=== PATIENT | female | born 1990 | race Caucasian/White ===

== ENCOUNTER 2022-11-19 07:21 | Emergency (ER) | payer SELFPAY ==
[~2022-11-19] VITALS: Ht 160 cm; Wt 107.5 kg
[2022-11-19 07:24] VITALS: BP 123/76
--- NOTE | 2022-11-19 07:30 | NUR ---
PT AMB TO BED 2.
[2022-11-19] MEDS ORDERED: MORPHINE SULFATE 10 MG/ML VIAL IVP ONE (07:50)
[2022-11-19] MEDS ORDERED: NACL 0.9% 1,000 ML IV ONE ×2 (07:50→08:50)
--- NOTE | 2022-11-19 09:10 | NUR ---
PT WAS HARD STICK, UNABLE TO START IV SL. US MACHINE AND PUT ON BEDSIDE, ENRIQUETA RN WAS ASKED TO START IV SL BUT ENRIQUETA WAS BUSY TO SEND HER PT TO FLOOR. PT COMPLAINING TO WAIT SAYING SHE IS IN PAIN AND WE WERE UNABLE TO START IV SL, GIVE HER IV PAIN MEDICATION IMMEDICATELY. SHE DIDN'T WANT TO WAINT, SAID GO HOME NOW, DR. RATLIFF WAS NOTIFIED AND OK FOR PT SIGN AMA. CHARGE NURSE MIGUELINA WAS NOTIFIED WELL. PT SIGNED AMA, WALKED OUT ED IN STABLE CONDITION.
--- NOTE | 2022-11-19 09:23 | NUR ---
waste documented ahead of time with cori collins. pharmacy notified and given full bottle with cap still attached. given to renae at this time
== END 2022-11-19 09:03 | disposition left against medical advice (07) ==
LOC: MED 07:21
DX: D57.1 Sickle-cell disease without crisis (principal); Z88.0 Allergy status to penicillin; Z88.8 Allergy status to other drugs, medicaments and biological substances
CPT/HCPCS: 71045; 99283; Q0092; J2270